=== PATIENT | female | born 1940 | race Caucasian/White ===

== ENCOUNTER 2018-09-01 21:34 | Emergency (ER) | payer OTHER ==
[~2018-09-01 21:34] MED LIST: ALBU18HF7 IH; CHOL100040 PO; DULO30CA51 PO; ESOM40CA PO; EXEM25TA PO; FELO10TA31 PO; FOLI0.8C PO; L.AC1CAP6 PO; LEVO75TA4 GT; LUBI24CA2 PO; NITR100C PO; OXYB10TA PO; PYRI100T2 PO; SENN-178 PO; TRAM-355 PO; TRAZ-185 PO; VITAMIN B12 PO
[2018-09-01] MEDS ORDERED: MORPHINE SULFATE 4 MG/1ML SYG ONE (23:02)
[2018-09-01] MEDS ORDERED: ONDANSETRON HCL 4 MG/2 ML VIAL ONE (23:02)
[2018-09-01] MEDS ORDERED: SODIUM CHLORIDE 0.9% 1000ML 1,000 ML IV ONE (23:03)
[2018-09-01 23:40] LABS: BASOPHILS % (AUTO) 0.6 % (0.0-5.0); EOSINOPHILS % (AUTO) 0.8 % (0.0-8.0); HEMATOCRIT 34.3 % (36-48); LYMPHOCYTES % (AUTO) 11.9 % (21.0-51.0); MEAN CORPUSCULAR HEMOGLOBIN 29.8 pg (27.0-33.0); MEAN CORPUSCULAR HGB CONC 33.4 g/dL (32.0-36.0); MONOCYTES % (AUTO) 11.9 % (3.0-13.0); NEUTROPHILS % (AUTO) 74.8 % (40.0-77.0); PLATELET COUNT (AUTO) 232 K/uL (130-400); RED BLOOD CELL COUNT(AUTO) 3.85 MIL/uL (4.00-5.50); RED CELL DISTRIBUTION WIDTH 16.6 % (11.0-15.5); WHITE BLOOD COUNT (AUTO) 8.3 K/uL (4.8-10.8)
[2018-09-01 23:51] LABS: INR 0.96 (0.85-1.15); PARTIAL THROMBOPLASTIN TIME 31.1 SEC (26.3-35.5); PROTHROMBIN TIME 10.1 SEC (9.6-11.6)
[2018-09-01 23:55] LABS: CREATININE 1.1 mg/dL (0.5-1.5); POTASSIUM 3.9 mmol/L (3.5-5.1)
[2018-09-02 00:02] LABS: ALBUMIN 3.8 g/dL (3.5-5.0); BILIRUBIN,TOTAL 0.3 mg/dL (0.2-1.0); TOTAL PROTEIN, SERUM 7.1 g/dL (6.0-8.3)
[2018-09-02 00:12] LABS: APPEARANCE,URINE Clear (CLEAR); BILIRUBIN,URINE Negative (NEGATIVE); COLOR,URINE Yellow (YELLOW); GLUCOSE, URINE (UA) Negative (NEGATIVE); KETONES,URINE Negative (NEGATIVE); LEUKOCYTE ESTERASE ,URINE Trace (NEGATIVE); NITRATE,URINE Negative (NEGATIVE); OCCULT BLOOD,URINE Negative (NEGATIVE); PROTEIN,URINE Negative (NEGATIVE)
[2018-09-02 00:29] LABS: BACTERIA,URINE None Seen /HPF (None Seen); MUCUS,URINE Rare LPF (None Seen); RBC,URINE None Seen /HPF (0-1); SQUAMOUS EPITHELIAL CELL,UR Few /HPF (0-2); WBC,URINE 0-1 /HPF (0-1)
== END 2018-09-02 01:28 | disposition home or self-care (01) ==
LOC: EDH 21:34
DX: S00.03XA Contusion of scalp, initial encounter (principal); S70.02XA Contusion of left hip, initial encounter; I10 Essential (primary) hypertension; K21.9 Gastro-esophageal reflux disease without esophagitis; E78.5 Hyperlipidemia, unspecified; E07.9 Disorder of thyroid, unspecified; Z88.6 Allergy status to analgesic agent; Z79.899 Other long term (current) drug therapy; Z90.710 Acquired absence of both cervix and uterus; Z98.890 Other specified postprocedural states; W17.89XA Other fall from one level to another, initial encounter; Y93.89 Activity, other specified; Y92.89 Other specified places as the place of occurrence of the external cause; Y99.8 Other external cause status
CPT/HCPCS: 36415; 70450; 71045; 72125; 72192; 73502; 80053; 81001; 85025; 85610; 85730; 93005; 96374; 96375; 99285; J2270; J2405; J7030

== ENCOUNTER → 2018-11-10 | Outpatient (CLI) | payer OTHER ==
[~2018-11-10] MED LIST changes: -DULO30CA51 PO; +DULO30CA52 PO; -OXYB10TA PO; +OXYB10TA2 PO
== END | disposition home or self-care (01) ==
LOC: RAH 10:59
PROVIDERS: ATTEND Nurse Practitioner Adult Health
DX: R92.2 Inconclusive mammogram (principal); Z85.3 Personal history of malignant neoplasm of breast; Z90.11 Acquired absence of right breast and nipple
CPT/HCPCS: 77065

== ENCOUNTER → 2019-08-31 | Outpatient (CLI) | payer OTHER ==
[~2019-08-31] MED LIST changes: -FELO10TA31 PO; +FELO10TA46 PO; -OXYB10TA2 PO; +OXYB10TA30 PO; +PYRI100T10 PO; -PYRI100T2 PO
== END | disposition home or self-care (01) ==
LOC: RAH 14:10
PROVIDERS: ATTEND Internal Medicine
DX: M41.86 Other forms of scoliosis, lumbar region (principal); M43.16 Spondylolisthesis, lumbar region; M25.78 Osteophyte, vertebrae; M47.816 Spondylosis without myelopathy or radiculopathy, lumbar region
CPT/HCPCS: 72131

== ENCOUNTER → 2019-09-17 | Outpatient (CLI) | payer OTHER | END | disposition home or self-care (01) | LOC: SHCH 11:05 | PROVIDERS: ATTEND Internal Medicine Cardiovascular Disease | DX: I48.0 Paroxysmal atrial fibrillation (principal) | CPT/HCPCS: 93306 ==

== ENCOUNTER → 2020-01-03 | Outpatient (CLI) | payer OTHER ==
[~2020-01-03] MED LIST changes: +REGADENOSON 0.4 MG/5 ML PF SYG IVP SCH
== END | disposition home or self-care (01) ==
LOC: SHCH 08:28
PROVIDERS: ATTEND Internal Medicine Cardiovascular Disease
DX: I25.10 Atherosclerotic heart disease of native coronary artery without angina pectoris (principal)
CPT/HCPCS: 78452; 93017; 96374; A9500 ×2; J2785

== ENCOUNTER → 2020-01-11 | Outpatient (CLI) | payer OTHER ==
[~2020-01-11] MED LIST changes: -REGADENOSON 0.4 MG/5 ML PF SYG IVP SCH
== END | disposition home or self-care (01) ==
LOC: RAH 10:00
PROVIDERS: ATTEND Nurse Practitioner Adult Health
DX: R92.8 Other abnormal and inconclusive findings on diagnostic imaging of breast (principal); R92.2 Inconclusive mammogram; Z85.3 Personal history of malignant neoplasm of breast
CPT/HCPCS: 77065

== ENCOUNTER → 2020-01-14 | Outpatient (CLI) | payer OTHER | END | disposition home or self-care (01) | LOC: RAH 12:45 | PROVIDERS: ATTEND Urology | DX: N39.0 Urinary tract infection, site not specified (principal); K44.9 Diaphragmatic hernia without obstruction or gangrene; N28.1 Cyst of kidney, acquired; R91.8 Other nonspecific abnormal finding of lung field | CPT/HCPCS: 74176; 76770 ==

== ENCOUNTER → 2020-02-07 | Outpatient (CLI) | payer OTHER | END | disposition home or self-care (01) | LOC: RAH 14:02 | PROVIDERS: ATTEND Internal Medicine Cardiovascular Disease | DX: Z13.6 Encounter for screening for cardiovascular disorders (principal); I25.10 Atherosclerotic heart disease of native coronary artery without angina pectoris | CPT/HCPCS: 75571 ==

== ENCOUNTER → 2021-05-17 | Outpatient (CLI) | payer MEDICARE, OTHER | END | disposition home or self-care (01) | LOC: RAH 09:22 | PROVIDERS: ATTEND Internal Medicine | DX: R92.2 Inconclusive mammogram (principal); Z85.3 Personal history of malignant neoplasm of breast; Z90.11 Acquired absence of right breast and nipple | CPT/HCPCS: 77065 ==

== ENCOUNTER → 2021-08-17 | Outpatient (CLI) | payer MEDICARE ==
[2021-08-17 12:40] LABS: APPEARANCE,URINE Cloudy (CLEAR); BILIRUBIN,URINE Negative (NEGATIVE); COLOR,URINE Yellow (YELLOW); GLUCOSE, URINE (UA) Negative (NEGATIVE); KETONES,URINE Negative (NEGATIVE); LEUKOCYTE ESTERASE ,URINE Moderate (NEGATIVE); NITRATE,URINE Positive (NEGATIVE); OCCULT BLOOD,URINE Negative (NEGATIVE); PROTEIN,URINE Negative (NEGATIVE); UROBILINOGEN,URINE 0.2 mg/dL (0.2-1.0)
[2021-08-17 13:10] LABS: BACTERIA,URINE Few /HPF (None Seen); RBC,URINE 0-1 /HPF (0-1); SQUAMOUS EPITHELIAL CELL,UR Rare /HPF (0-2); WBC,URINE 26-50 /HPF (0-1)
== END | disposition home or self-care (01) ==
LOC: LAB 11:44
PROVIDERS: ATTEND Internal Medicine Cardiovascular Disease
DX: I11.9 Hypertensive heart disease without heart failure (principal); I25.10 Atherosclerotic heart disease of native coronary artery without angina pectoris; I48.0 Paroxysmal atrial fibrillation; E03.9 Hypothyroidism, unspecified; E78.5 Hyperlipidemia, unspecified; Z79.01 Long term (current) use of anticoagulants; Z79.899 Other long term (current) drug therapy
CPT/HCPCS: 81001; 87077; 87088; 87186

== ENCOUNTER → 2022-05-20 | Outpatient (CLI) | payer MEDICARE | END | disposition home or self-care (01) | LOC: RAH 11:05 | PROVIDERS: ATTEND Internal Medicine | DX: C50.811 Malignant neoplasm of overlapping sites of right female breast (principal); Z98.890 Other specified postprocedural states | CPT/HCPCS: 77065 ==

== ENCOUNTER 2022-12-22 23:57 | Emergency (ER) | payer MEDICARE ==
[~2022-12-22] VITALS: Ht 157.5 cm; Wt 81.6 kg
[~2022-12-22 23:57] MED LIST changes: +ALBU0.63 IH; -ALBU18HF7 IH; +ESOM20CA31 PO; -ESOM40CA PO; +EZET10TA48 PO; -FELO10TA46 PO; +FERR-72 PO; -L.AC1CAP6 PO; +LEVO75CA5 PO; -LEVO75TA4 GT; -LUBI24CA2 PO; +MIRA50TA PO; -NITR100C PO; -OXYB10TA30 PO; -PYRI100T10 PO; +RIVA2.5T PO; -SENN-178 PO; +SENN8.6T90 PO; -VITAMIN B12 PO
[2022-12-23 01:01] LABS: BASOPHILS # (AUTO) 0.03 K/uL (0.00-0.20); BASOPHILS % (AUTO) 0.3 % (0.0-5.0); EOSINOPHILS # (AUTO) 0.01 K/uL (0.00-0.70); EOSINOPHILS % (AUTO) 0.1 % (0.0-8.0); HEMATOCRIT 32.1 % (36-48); IMMATURE GRANULOCYTE ABSOLUTE 0.04 K/uL (0-1); LYMPHOCYTES # (AUTO) 0.6 K/uL (1.0-4.8); LYMPHOCYTES % (AUTO) 5.3 % (21.0-51.0); MEAN CORPUSCULAR HEMOGLOBIN 30.8 pg (27.0-33.0); MEAN CORPUSCULAR VOLUME 93.3 fL (79-99); MONOCYTES # (AUTO) 1.1 K/uL (0.1-1.0); MONOCYTES % (AUTO) 10.5 % (3.0-13.0); NEUTROPHILS # (AUTO) 8.7 K/uL (1.8-7.7); NEUTROPHILS % (AUTO) 83.4 % (40.0-77.0); PLATELET COUNT (AUTO) 168 K/uL (130-400); RED BLOOD CELL COUNT(AUTO) 3.44 MIL/uL (4.00-5.50); RED CELL DISTRIBUTION WIDTH 15.2 % (11.0-15.5); WHITE BLOOD COUNT (AUTO) 10.4 K/uL (4.8-10.8)
[2022-12-23 01:11] LABS: CREATININE 1.1 mg/dL (0.5-1.5); POTASSIUM 3.9 mmol/L (3.5-5.1)
[2022-12-23 01:16] LABS: WBC MORPHOLOGY CONSISTENT W/DIFF
[2022-12-23 01:18] LABS: ALBUMIN 3.4 g/dL (3.5-5.0); BILIRUBIN,TOTAL 0.3 mg/dL (0.2-1.0); TOTAL PROTEIN, SERUM 6.9 g/dL (6.0-8.3)
[2022-12-23 02:37] LABS: APPEARANCE,URINE TURBID (CLEAR); BILIRUBIN,URINE NEGATIVE (NEGATIVE); COLOR,URINE LIGHT-ORANGE (YELLOW); GLUCOSE, URINE (UA) NEGATIVE (NEGATIVE); KETONES,URINE NEGATIVE (NEGATIVE); LEUKOCYTE ESTERASE ,URINE 500 Leu/uL (NEGATIVE); NITRATE,URINE NEGATIVE (NEGATIVE); OCCULT BLOOD,URINE LARGE (NEGATIVE); PH,URINE 5.5 (5.0-8.0); PROTEIN,URINE 100 mg/dL (NEGATIVE); UROBILINOGEN,URINE 0.2 mg/dL (0.2-1.0)
[2022-12-23 02:38] LABS: ADD UA MICROSCOPIC YES
[2022-12-23 02:40] LABS: BACTERIA,URINE RARE /HPF (None Seen); MUCUS,URINE RARE LPF (None Seen); RBC,URINE TNTC /HPF (0-1); WBC CLUMP MANY /HPF (0-1); WBC,URINE TNTC /HPF (0-1)
[2022-12-23] MEDS: ACETAMINOPHEN 325 MG TAB ONE (03:38)
[2022-12-23] MEDS: ACETAMINOPHEN 325 MG TAB PO ONE (03:38)
[2022-12-23] MEDS ORDERED: IOHEXOL 350 MG/ML 100ML INFUS..BTL IV ONE (03:50)
[2022-12-23] MEDS ORDERED: CEFU500T67 PO (05:11)
[2022-12-23] MEDS: CEFTRIAXONE 1G VIAL ONE (05:22)
[2022-12-23] MEDS: CEFTRIAXONE 1G VIAL IVPB ONE (05:44)
[2022-12-23 07:26] VITALS: BP 133/85; PULSE 90; RESP 20; O2SAT 95
== END 2022-12-23 08:39 | disposition home or self-care (01) ==
LOC: EDH 23:57
DX: N39.0 Urinary tract infection, site not specified (principal); I48.91 Unspecified atrial fibrillation; J45.909 Unspecified asthma, uncomplicated; E03.9 Hypothyroidism, unspecified; E78.00 Pure hypercholesterolemia, unspecified; I10 Essential (primary) hypertension; M19.90 Unspecified osteoarthritis, unspecified site; Z79.01 Long term (current) use of anticoagulants; Z79.890 Hormone replacement therapy; Z85.3 Personal history of malignant neoplasm of breast; Z88.5 Allergy status to narcotic agent; Z88.1 Allergy status to other antibiotic agents; Z90.11 Acquired absence of right breast and nipple; Z96.643 Presence of artificial hip joint, bilateral; Z88.8 Allergy status to other drugs, medicaments and biological substances
CPT/HCPCS: 99285; 80053; 85025; 87077; 87088; 87186; 81001; 36415; 74177; 96365; 96366; J0696; Q9967

== ENCOUNTER 2023-02-12 21:59 | Observation (INO) | payer MEDICARE ==
[~2023-02-12] VITALS: Ht 157.5 cm; Wt 89.8 kg
[~2023-02-12 21:59] MED LIST changes: +CEFU500T67 PO
[2023-02-12] MEDS ORDERED: 0.9%NACL 1000ML 1,000 ML IV ONE (23:00)
[2023-02-12] MEDS ORDERED: CEFTRIAXONE 2GM VIAL IVPB ONE (23:00)
[2023-02-12] MEDS ORDERED: PHENAZOPYRIDINE HCL 200 MG TABLET PO ONE (23:00)
[2023-02-12 23:30] LABS: BASOPHILS # (AUTO) 0.05 K/uL (0.00-0.20); BASOPHILS % (AUTO) 0.6 % (0.0-5.0); EOSINOPHILS # (AUTO) 0.09 K/uL (0.00-0.70); HEMATOCRIT 35.6 % (36-48); IMMATURE GRANULOCYTE ABSOLUTE 0.07 K/uL (0-1); LYMPHOCYTES # (AUTO) 0.9 K/uL (1.0-4.8); LYMPHOCYTES % (AUTO) 10.2 % (21.0-51.0); MEAN CORPUSCULAR HEMOGLOBIN 30.2 pg (27.0-33.0); MEAN CORPUSCULAR HGB CONC 32.3 g/dL (32.0-36.0); MEAN CORPUSCULAR VOLUME 93.4 fL (79-99); MONOCYTES # (AUTO) 0.9 K/uL (0.1-1.0); MONOCYTES % (AUTO) 10.2 % (3.0-13.0); NEUTROPHILS # (AUTO) 6.6 K/uL (1.8-7.7); NEUTROPHILS % (AUTO) 77.2 % (40.0-77.0); PLATELET COUNT (AUTO) 232 K/uL (130-400); RED BLOOD CELL COUNT(AUTO) 3.81 MIL/uL (4.00-5.50); RED CELL DISTRIBUTION WIDTH 14.6 % (11.0-15.5); WHITE BLOOD COUNT (AUTO) 8.6 K/uL (4.8-10.8)
[2023-02-12 23:40] LABS: INR 1.06 (0.85-1.15); PROTHROMBIN TIME 12.2 SEC (9.6-11.6)
[2023-02-12 23:42] LABS: PARTIAL THROMBOPLASTIN TIME 36.2 SEC (26.3-35.5)
[2023-02-13] VITALS (7 sets, daily range): BP systolic 150–176; BP diastolic 67–91; PULSE 57–107; RESP 16–18; O2SAT 95
[2023-02-13] LABS: CREATININE 1.1 mg/dL (0.5-1.5); POTASSIUM 3.9 mmol/L (3.5-5.1)
[2023-02-13 00:16] LABS: MAGNESIUM 1.7 mg/dL (1.80-2.40); THYROID STIMULATING HORMONE 5.88 uIU/mL (0.36-3.74)
[2023-02-13 00:29] LABS: APPEARANCE,URINE CLEAR (CLEAR); BILIRUBIN,URINE NEGATIVE (NEGATIVE); COLOR,URINE YELLOW (YELLOW); GLUCOSE, URINE (UA) NEGATIVE (NEGATIVE); KETONES,URINE NEGATIVE (NEGATIVE); LEUKOCYTE ESTERASE ,URINE NEGATIVE Leu/uL (NEGATIVE); NITRATE,URINE NEGATIVE (NEGATIVE); OCCULT BLOOD,URINE LARGE (NEGATIVE); PH,URINE 5.5 (5.0-8.0); PROTEIN,URINE NEGATIVE (NEGATIVE); UROBILINOGEN,URINE 0.2 mg/dL (0.2-1.0)
[2023-02-13 00:35] LABS: ADD UA MICROSCOPIC YES
[2023-02-13 00:36] LABS: MUCUS,URINE RARE LPF (None Seen); RBC,URINE 26-50 /HPF (0-1)
[2023-02-13] MEDS ORDERED: ACETAMINOPHEN 325 MG TAB PO ONE (03:00)
[2023-02-13] MEDS ORDERED: POLYETHYLENE GLYCOL 3350 17 GM POWD.PACK PO PRN (05:00)
[2023-02-13] MEDS ORDERED: DiphenhydrAMINE HCL 50 MG/ML VIAL IV PRN (05:00)
[2023-02-13] MEDS ORDERED: LACTULOSE 20 GM/30 ML UDCUP PO PRN (05:00)
[2023-02-13] MEDS ORDERED: MAG/ALUM/SIMETH 30 ML UDCUP PO PRN (05:00)
[2023-02-13] MEDS ORDERED: GUAIFENESIN-DM 200/20 MG 10 ML PO PRN (05:00)
[2023-02-13] MEDS ORDERED: ZOLPIDEM TARTRATE 5 MG TAB PO PRN (05:00)
[2023-02-13] MEDS ORDERED: ALPRAZOLAM 0.5 MG TABLET PO PRN (05:00)
[2023-02-13] MEDS ORDERED: ACETAMINOPHEN 325 MG TAB PO PRN (05:00)
[2023-02-13] MEDS ORDERED: NITROGLYCERIN 0.4 MG SL TAB SL PRN (05:00)
[2023-02-13] MEDS ORDERED: DEXTROSE 50%-WATER 50 ML DISP.SYRIN IV PRN (05:00)
[2023-02-13] MEDS ORDERED: ONDANSETRON 4MG INJ IV PRN (05:00)
[2023-02-13] MEDS ORDERED: GUAIFENESIN SUGAR-FREE 100 MG/5 ML UDCUP PO PRN (05:00)
[2023-02-13] MEDS ORDERED: POTASSIUM CHLORIDE 20MEQ/100ML 100 ML IV PRN ×2 (05:00)
[2023-02-13] MEDS ORDERED: DOCUSATE SODIUM 100 MG CAP PO PRN (05:00)
[2023-02-13] MEDS ORDERED: DIPHENHYDRAMINE HCL 25 MG CAPSULE PO PRN (05:00)
[2023-02-13] MEDS: ZOSYN 3.375GM +NS 50ML IV SCH ×3 (05:00→21:30)
[2023-02-13] MEDS ORDERED: ZOSYN 3.375GM+NS 50ML 50 ML IVPB ONE (05:00)
[2023-02-13] MEDS ORDERED: GLUCAGON 1MG KIT 1 MG ML IM PRN (05:00)
[2023-02-13] MEDS ORDERED: HYDRALAZINE 25MG TABLET PO PRN (05:00)
[2023-02-13] MEDS ORDERED: KCL 20 MEQ ERTAB PO PRN (05:00)
[2023-02-13] MEDS: 0.9%NACL 1000ML 1,000 ML IV SCH ×2 (05:41→18:20)
[2023-02-13] MEDS ORDERED: OXYB10TA30 PO (05:53)
[2023-02-13] MEDS ORDERED: CALC-1125 PO (05:53)
[2023-02-13] MEDS ORDERED: CHOL-34 PO (05:53)
[2023-02-13] MEDS ORDERED: FELO10TA46 PO (05:53)
[2023-02-13] MEDS ORDERED: FOLI0.8C PO (05:53)
[2023-02-13] MEDS ORDERED: RIVA15TA PO (05:53)
[2023-02-13] MEDS ORDERED: METO-408 PO (05:53)
[2023-02-13] MEDS ORDERED: LEVO75CA5 PO (05:53)
[2023-02-13 06:25] LABS: HEMATOCRIT 32.1 % (36-48); MEAN CORPUSCULAR HEMOGLOBIN 29.9 pg (27.0-33.0); MEAN CORPUSCULAR HGB CONC 32.4 g/dL (32.0-36.0); MEAN CORPUSCULAR VOLUME 92.2 fL (79-99); RED BLOOD CELL COUNT(AUTO) 3.48 MIL/uL (4.00-5.50); RED CELL DISTRIBUTION WIDTH 14.7 % (11.0-15.5); WHITE BLOOD COUNT (AUTO) 7.5 K/uL (4.8-10.8)
[2023-02-13] MEDS: LEVOTHYROXINE 75 MCG TABLET PO SCH (06:30)
[2023-02-13] MEDS: INSULIN HUMULIN R 100 UNIT/ML 3ML SQ SCH ×4 (06:35→21:00)
[2023-02-13 06:36] LABS: CREATININE 0.9 mg/dL (0.5-1.5); MAGNESIUM 1.5 mg/dL (1.80-2.40); POTASSIUM 3.7 mmol/L (3.5-5.1)
[2023-02-13] MEDS ORDERED: NON-FORMULARY MEDICATION 1 EACH (Levothyroxine Sodium (Levothyroxine) 75 MCG) PO SCH (09:00)
[2023-02-13] MEDS ORDERED: NON-FORMULARY MEDICATION 1 EACH (Esomeprazole Magnesium (Nexium) 20 MG) PO SCH (09:00)
[2023-02-13] MEDS ORDERED: MAGNESIUM 2GM PREMIX 50ML 50 ML IV SCH (09:30)
[2023-02-13] MEDS: CARVEDILOL 6.25 MG TABLET PO SCH ×2 (09:45→21:30)
[2023-02-13] MEDS: PANTOPRAZOLE 40 MG TAB DR PO SCH (09:45)
[2023-02-13] MEDS: MAGNESIUM 2GM PREMIX 50ML 50 ML IV PRN (09:46)
[2023-02-13] MEDS ORDERED: SODIUM CHLORIDE IRRIG SOLUTION 1,000 ML IRRIG.SOLN IR SCH (13:00)
[2023-02-13 20:21] LABS: APPEARANCE,URINE CLEAR (CLEAR); BILIRUBIN,URINE NEGATIVE (NEGATIVE); COLOR,URINE DARK-YELLOW (YELLOW); GLUCOSE, URINE (UA) NEGATIVE (NEGATIVE); KETONES,URINE NEGATIVE (NEGATIVE); LEUKOCYTE ESTERASE ,URINE NEGATIVE Leu/uL (NEGATIVE); NITRATE,URINE NEGATIVE (NEGATIVE); OCCULT BLOOD,URINE NEGATIVE (NEGATIVE); PH,URINE 5.5 (5.0-8.0); PROTEIN,URINE NEGATIVE (NEGATIVE); UROBILINOGEN,URINE 0.2 mg/dL (0.2-1.0)
[2023-02-13 20:24] LABS: ADD UA MICROSCOPIC YES
[2023-02-13 20:27] LABS: BACTERIA,URINE RARE /HPF (None Seen); MUCUS,URINE RARE LPF (None Seen); SQUAMOUS EPITHELIAL CELL,UR RARE /HPF (0-2); UNCLASSIFIED CRYSTAL 7 /HPF (None Seen)
[2023-02-13] MEDS ORDERED: IPRATROPIUM 0.5 MG/2.5 ML INH IH ONE (22:32)
[2023-02-14] VITALS (12 sets, daily range): BP systolic 132–151; BP diastolic 70–101; PULSE 65–103; RESP 17–18; O2SAT 96
[2023-02-14] MEDS: LEVOTHYROXINE 75 MCG TABLET PO SCH (05:31)
[2023-02-14] MEDS: ZOSYN 3.375GM +NS 50ML IV SCH ×3 (05:31→20:14)
[2023-02-14] MEDS: INSULIN HUMULIN R 100 UNIT/ML 3ML SQ SCH ×4 (05:36→20:53)
[2023-02-14 06:14] LABS: HEMATOCRIT 32.4 % (36-48); MEAN CORPUSCULAR HEMOGLOBIN 30.3 pg (27.0-33.0); MEAN CORPUSCULAR HGB CONC 32.4 g/dL (32.0-36.0); MEAN CORPUSCULAR VOLUME 93.6 fL (79-99); RED BLOOD CELL COUNT(AUTO) 3.46 MIL/uL (4.00-5.50); RED CELL DISTRIBUTION WIDTH 15.2 % (11.0-15.5); WHITE BLOOD COUNT (AUTO) 6.3 K/uL (4.8-10.8)
[2023-02-14 06:30] LABS: CREATININE 1.1 mg/dL (0.5-1.5)
[2023-02-14] MEDS: IPRATROPIUM 0.5 MG/2.5 ML INH IH SCH ×4 (07:27→23:02)
[2023-02-14] MEDS: 0.9%NACL 1000ML 1,000 ML IV SCH ×3 (07:40→22:20)
[2023-02-14] MEDS: CARVEDILOL 6.25 MG TABLET PO SCH ×2 (09:17→20:15)
[2023-02-14] MEDS: PANTOPRAZOLE 40 MG TAB DR PO SCH (09:18)
[2023-02-14] MEDS ORDERED: IOHEXOL-350 75 ML VIAL IV ONE (16:50)
[2023-02-14] MEDS: ACETAMINOPHEN 325 MG TAB PO PRN (22:17)
[2023-02-15 00:06] VITALS: BP 133/65; PULSE 84; RESP 18
[2023-02-15 04:06] VITALS: BP 149/88; PULSE 78; RESP 18
[2023-02-15] MEDS: ZOSYN 3.375GM +NS 50ML IV SCH (04:18)
[2023-02-15 05:18] LABS: HEMATOCRIT 29.8 % (36-48); MEAN CORPUSCULAR HEMOGLOBIN 30.3 pg (27.0-33.0); MEAN CORPUSCULAR HGB CONC 31.9 g/dL (32.0-36.0); MEAN CORPUSCULAR VOLUME 94.9 fL (79-99); RED BLOOD CELL COUNT(AUTO) 3.14 MIL/uL (4.00-5.50); RED CELL DISTRIBUTION WIDTH 15.3 % (11.0-15.5); WHITE BLOOD COUNT (AUTO) 6.5 K/uL (4.8-10.8)
[2023-02-15] MEDS: LEVOTHYROXINE 75 MCG TABLET PO SCH (05:28)
[2023-02-15 05:33] LABS: CREATININE 1.1 mg/dL (0.5-1.5); MAGNESIUM 1.8 mg/dL (1.80-2.40); POTASSIUM 3.2 mmol/L (3.5-5.1)
[2023-02-15] MEDS: INSULIN HUMULIN R 100 UNIT/ML 3ML SQ SCH (05:52)
[2023-02-15] MEDS: POTASSIUM CHLORIDE 10% ELIXIR 20 MEQ/15 ML UDCUP PO PRN ×2 (06:11→09:41)
[2023-02-15] MEDS: MAGNESIUM 2GM PREMIX 50ML 50 ML IV PRN (06:12)
[2023-02-15] MEDS: IPRATROPIUM 0.5 MG/2.5 ML INH IH SCH ×2 (07:18→12:26)
[2023-02-15 07:19] VITALS: PULSE 76; RESP 18
[2023-02-15 08:00] VITALS: BP 143/86; PULSE 79; RESP 17; O2SAT 94
[2023-02-15] MEDS: CARVEDILOL 6.25 MG TABLET PO SCH (09:41)
[2023-02-15] MEDS: PANTOPRAZOLE 40 MG TAB DR PO SCH (09:41)
[2023-02-15] MEDS: ACETAMINOPHEN 325 MG TAB PO PRN (09:52)
[2023-02-15 12:00] VITALS: BP 159/75; PULSE 77; RESP 17
[2023-02-15 12:26] VITALS: PULSE 83; RESP 18
[2023-02-15] MEDS ORDERED: CHOL-34 PO (16:24)
[2023-02-15] MEDS ORDERED: AMOX-426 PO (16:24)
[2023-02-15] MEDS ORDERED: CALC-1125 PO (16:24)
== END 2023-02-15 18:03 | disposition home or self-care (01) ==
LOC: EDH 21:59 → EDHIP 02-13 04:37 → 3CH 02-13 06:26
PROVIDERS: ADMIT Internal Medicine Critical Care Medicine; ATTEND Internal Medicine Critical Care Medicine
DX: R31.9 Hematuria, unspecified (principal); I48.0 Paroxysmal atrial fibrillation; J45.909 Unspecified asthma, uncomplicated; I73.00 Raynaud's syndrome without gangrene; E03.9 Hypothyroidism, unspecified; E83.42 Hypomagnesemia; E78.00 Pure hypercholesterolemia, unspecified; I10 Essential (primary) hypertension; F32.A Depression, unspecified; D35.01 Benign neoplasm of right adrenal gland; D35.02 Benign neoplasm of left adrenal gland; K76.0 Fatty (change of) liver, not elsewhere classified; N39.0 Urinary tract infection, site not specified; N28.1 Cyst of kidney, acquired; M19.90 Unspecified osteoarthritis, unspecified site; R31.0 Gross hematuria; Z79.01 Long term (current) use of anticoagulants; Z85.3 Personal history of malignant neoplasm of breast; Z87.440 Personal history of urinary (tract) infections; Z88.1 Allergy status to other antibiotic agents; Z90.710 Acquired absence of both cervix and uterus; Z96.643 Presence of artificial hip joint, bilateral; Z96.659 Presence of unspecified artificial knee joint; Z79.899 Other long term (current) drug therapy; Z98.890 Other specified postprocedural states
CPT/HCPCS: 96365; 99284; 84443; 83735 ×4; 80048 ×4; 85025; 85610; 85730; 96376; 96361 ×4; 96366 ×5; 96367; 85027 ×3; 87088; 82948 ×9; 81001 ×2; 36415 ×4; 94640 ×7; 94664; 74178; 96368; 97161; 97116; J7030 ×2; J0696; G0378 ×59; J3475 ×2; J2543 ×7; Q9967